=== PATIENT | female | born 1960 | race Caucasian/White ===

== ENCOUNTER → 2017-07-25 | Outpatient (CLI) | payer BC | END | disposition home or self-care (01) | LOC: GMAJ 10:43 | PROVIDERS: ATTEND Family Medicine | DX: I10 Essential (primary) hypertension (principal) ==

== ENCOUNTER 2017-08-22 05:39 | Day surgery (SDC) | payer BC ==
[2017-08-22] MEDS: LACTATED RINGERS 1,000 ML ONE (06:45)
--- NOTE | 2017-08-22 08:23 | OP ---
DATE OF PROCEDURE: 08/22/17 PREOPERATIVE DIAGNOSIS: 1. Colon cancer screen. POSTOPERATIVE DIAGNOSIS: 1. Normal colon. PROCEDURE: 1. Colonoscopy. SURGEON: Allan Servin MD. ANESTHESIA: MAC by Zeeshan Frazier CRNA. COMPLICATIONS: None apparent. TECHNIQUE: After informed consent was obtained from the patient, the patient was taken to the Endoscopy Suite and put in the left lateral decubitus position. After adequate IV sedation was obtained, a digital rectal exam was performed which revealed normal sphincter tone and no intraluminal masses. The colonoscope was then passed with good visualization all the way through the colon. The bowel prep was good. There was a small amount of liquid stool with a large amount of foamy air bubbles throughout the colon that we had to suction and navigate around. I was able to get a good look at the vast majority of the colon. The cecum was identified by the presence of ileocecal valve and appendiceal orifice. The scope was then withdrawn slowly over the next 8 to 10 minutes and a good look at the entire colonic mucosa was obtained. There were no masses, polyps, diverticula or other mucosal anomalies identified. The scope was removed. The patient tolerated the procedure well. The patient was transported to the outpatient area in good condition. She will followup on a p.r.n. basis. #[id number] [facility]
[2017-08-22 09:00] VITALS: BP 129/84; TEMP 97.4; O2SAT 100
== END 2017-08-22 09:00 | disposition home or self-care (01) ==
LOC: AMB 05:39
PROVIDERS: ATTEND Family Medicine
DX: Z12.11 Encounter for screening for malignant neoplasm of colon (principal); I10 Essential (primary) hypertension; E78.00 Pure hypercholesterolemia, unspecified; K59.00 Constipation, unspecified; E78.2 Mixed hyperlipidemia; J45.909 Unspecified asthma, uncomplicated; Z80.0 Family history of malignant neoplasm of digestive organs; Z88.8 Allergy status to other drugs, medicaments and biological substances; Z79.82 Long term (current) use of aspirin; Z79.899 Other long term (current) drug therapy
CPT/HCPCS: 00810; 45378; J7120

== ENCOUNTER 2019-09-11 05:43 | Day surgery (SDC) | payer BC ==
[2019-09-11] MEDS ORDERED: BUPIVACAINE 0.5% W/EPI 30 ML VIAL INJ ONE ×3 (08:45→10:38)
[2019-09-11] MEDS ORDERED: KETOROLAC TROMETHAMINE INJ 30 MG/ML VIAL IV ONE (10:00)
[2019-09-11] MEDS ORDERED: DEXAMETHASONE INJ 10 MG/ML VIAL IV ONE (10:00)
[2019-09-11] MEDS ORDERED: SODIUM CHLORIDE 0.9% 50 ML VIAL INJ ONE (10:00)
[2019-09-11] MEDS ORDERED: LIDOCAINE 1% 10 ML VIAL INJ ONE (10:00)
[2019-09-11] MEDS ORDERED: PROPOFOL 200 MG/20 ML VIAL IV ONE (10:00)
[2019-09-11] MEDS ORDERED: KETAMINE HCL 100 MG/ML VIAL ONE (10:12)
[2019-09-11] MEDS ORDERED: LACTATED RINGERS 1,000 ML ONE (10:12)
[2019-09-11] MEDS ORDERED: MIDAZOLAM INJ 2 MG/2 ML VIAL ONE (10:13)
[2019-09-11] MEDS ORDERED: fentaNYL CITRATE INJ 50 MCG/ML AMP ONE (10:13)
[2019-09-11] MEDS ORDERED: DEXMEDETOMIDINE HCL 200 MCG/2 ML INJ IV ONE (11:03)
--- NOTE | 2019-09-11 11:38 | MAM ---
EXAM DESCRIPTION: Breast-Needle Mammographic Localization Lt: Digital mammography. CLINICAL HISTORY: 59 years FemaleABN MAMMO. 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 Previous biopsy by stereotactic technique, with introduction of biopsy site clip. COMPARISON: Report only. Left breast diagnostic tomosynthesis 15 August 2019. Left breast stereotactic biopsy 13 March 2019. TECHNIQUE: The procedure was explained to the patient with risks and benefits. The patient gave verbal and written consent. The area for localization was identified in the posterior third upper outer quadrant, which includes the biopsy site marker this marker is approximately 4.5 cm from the skin surface The patient was placed in the digital mammographic unit in the lateral medial position, utilizing the special compression paddle with localizing window. Lateral medial image shows biopsy site marker and mammographic density and focal asymmetry. Sterile preparation. Intradermal and subdermal injection of 1% Xylocaine. The 7 mm [place] Mammalok system was introduced through the paddle window into the lateral left breast. Repeat lateral medial image, with needle in place. The breast was moved into the craniocaudal position; repeat images after adjustment showing proper needle depth. Continuing sterile technique, the needle was withdrawn, leaving hook wire in place. Repeat craniocaudal image. Repeat lateral medial image with wire only. The hard copy paper images were labeled for surgical guidance, and delivered to the surgical suite. The patient tolerated the procedure well with no immediate complications. FINDINGS: Images obtained at each stage of the procedure to evaluate position of the needle wire localization device. Final images show the thickened segment of the wire just anterior and inferior to the biopsy site marker surrounded by mammographic density and focal asymmetry. The apex of the wire and hook is approximately 1.5 cm medial to the biopsy site marker. IMPRESSION: Successful mammographic guided needle wire localization of left breast previous stereotactic biopsy site and biopsy site marker. The procedure results were discussed by phone with Dr. Allan Douglas, prior to excisional biopsy. Digital mammography of the biopsy specimen to follow excisional biopsy. Electronically signed by: Seamus Keating MD 09/11/2019 11:37 AM [facility]
--- NOTE | 2019-09-11 11:44 | OP ---
DATE OF PROCEDURE: 09/11/19 PREOPERATIVE DIAGNOSIS: 1. Left breast mass with high-risk pathology. POSTOPERATIVE DIAGNOSIS: 1. Left breast mass with high-risk pathology. PROCEDURE: 1. Left breast needle localized wide local excision. SURGEON: Allan Douglas MD. ANESTHESIA: General and local. FINDINGS: The mass was posterior and anterior to the wire which had excellent placement. X-ray of the specimen confirmed the clip in the mass within the specimen. COMPLICATION: None. ESTIMATED BLOOD LOSS: None. CONDITION: Stable. PLAN: Discharge. INDICATION: The patient had a sclerosing lesion with excision recommended as well as an intraductal papilloma. She had previously gone to see her prior breast surgeon who I guess has retired or was unavailable, so she came back to me and we recommended complete excision of this lesion understanding low risk for malignancy, but excision is recommended. She had a clip in place. We arranged Radiology and today, she is coming in for the needle localized wide local excision. PROCEDURE: The wire was successfully placed. I reviewed the placement with the radiologist as well as reviewing the printed films. IV sedation was given and then general anesthesia. She was prepped and draped in sterile fashion. Local anesthesia was used. A curved incision was made in the superolateral portion of the left breast. Incision was made. It went down and found the thick portion of the wire, thus we began to core out our specimen. A small core was taken for at this point benign pathology and sent to x-ray where confirmed the clip and the wire in the specimen. Minimal hemostasis was required. The wound was irrigated and then closed in 2 layers with absorbable sutures. Steri-Strips applied. She was then awakened and taken to Recovery to be discharged. [facility][id number] [facility]
[2019-09-11] MEDS ORDERED: traMADol HCL 50 MG TAB ONE (11:46)
[2019-09-11] MEDS ORDERED: MORPHINE SULFATE INJ 10 MG/ML VIAL ONE (12:01)
--- NOTE | 2019-09-11 12:22 | MAM ---
EXAM DESCRIPTION: Breast Surgical Specimen: Digital Mammography. CLINICAL HISTORY: 59 yearsFemaleABN MAMMO. Prior stereotactic biopsy upper outer quadrant left breast with pathology findings of complex sclerosing lesion with an intraductal papilloma. COMPARISON: Mammographic guided, needle wire localization of left breast prior biopsy site and focal asymmetry today. TECHNIQUE: Digital mammography of left breast biopsy specimen. FINDINGS: The left breast biopsy specimen contains the biopsy site marker seen on today's procedure images from previous stereotactic biopsy examination. Also the focal asymmetry seen on today's mammographic guided localization. Microcalcifications also seen within the specimen. The distal wire and hook are present within the specimen, abutting the biopsy site marker. IMPRESSION: Successful, digital mammographic guided, needle wire localization of biopsy site marker from prior stereotactic biopsy and surrounding focal asymmetry in the left breast, with biopsy site marker, localizing wire hook, and microcalcifications present in the biopsy specimen. CRITICAL COMMUNICATION: The critical value was discussed directly by phone by Dr. Keating, with Dr. Allan Douglas, who is with the patient in the surgical suite, at approximately 1115 hours, on 11 September 2019. Electronically signed by: Seamus Keating MD 09/11/2019 12:21 PM [facility]
[2019-09-11 14:15] VITALS: BP 136/93; TEMP 97; O2SAT 97
== END 2019-09-11 12:15 | disposition home or self-care (01) ==
LOC: AMB 05:43
PROVIDERS: ATTEND Surgery
DX: D24.2 Benign neoplasm of left breast (principal); N60.92 Unspecified benign mammary dysplasia of left breast; N60.22 Fibroadenosis of left breast; I10 Essential (primary) hypertension; J45.909 Unspecified asthma, uncomplicated; E78.1 Pure hyperglyceridemia; Z90.710 Acquired absence of both cervix and uterus; Z88.5 Allergy status to narcotic agent; Z79.82 Long term (current) use of aspirin; Z79.899 Other long term (current) drug therapy
CPT/HCPCS: 00400; 19120; 76098; A4216; J1100; J1885; J2250; J2270; J3010; J3490; J7120